=== PATIENT | female | born 1990 | race African-American/Black ===

== ENCOUNTER 2019-09-08 23:29 | Emergency (ER) | payer OTHER ==
[2019-09-08 23:33] VITALS: BMI 29.7
--- NOTE | 2019-09-08 23:47 | PDOC ---
History of Present Illness - General Chief Complaint: Vomiting/Diarrhea Stated Complaint: ABDOMINAL PAIN/VOMITING Time Seen by Provider: 09/08/19 23:46 - History of Present Illness Initial Comments: 28 YOF pmh colitis presents with nausea and vomiting of 1 day duration. Patient reports that this AM she woke up, after a night of drinking, and began vomiting. She had multiple bouts of vomiting throughout the day and was unable to keep down any fluids or solid food. She denies taking anything to alleviate her symptoms. She mentions one bout of diarrhea which occurred in the morning. She denies recent sick contacts or travel. She denies h/o abdominal surgery. She denies abdominal pain, blood in her stool or vomitus. She denies CP, SOB, fever or chills. 09/09/19 04:58 Past History - Travel History Traveled outside of the country in the last 30 days: No Close contact w/someone who was outside of country & ill: No - Medical History Allergies/Adverse Reactions: Allergies Allergy/AdvReac Type Severity Reaction Status Date / Time No Known Allergies Allergy Verified 09/08/19 23:33 Home Medications: Ambulatory Orders Famotidine [Pepcid -] 20 mg PO DAILY #7 tablet 09/09/19 Ondansetron [Zofran *Odt*] 4 mg SL TID #9 od.tablet 09/09/19 COPD: No - Psycho-Social/Smoking History Smoking History: Never smoked Have you smoked in the past 12 months: No - Substance Abuse Hx (Audit-C & DAST Scrn) How often the patient has a drink containing alcohol: 2-4 times / month Number of drinks the patient has on a typical day: 1 or 2 How often the patient has six or more drinks on one occasion: Never Score: In Men: 4 or > Positive; In Women: 3 or > Positive: 2 Screen Result (Pos requires Nsg. Audit-10AR): Negative In the last yr the pt used illegal drug/Rx for NonMed reason: No Score: Yes response is considered Positive: 0 Screen Result (Positive result requires Nsg. DAST-10): Negative Review of Systems - Review of Systems Constitutional: Yes: See HPI HEENTM: Yes: See HPI Respiratory: Yes: See HPI Cardiac (ROS): Yes: See HPI ABD/GI: Yes: See HPI : Yes: See HPI Musculoskeletal: Yes: See HPI Integumentary: Yes: See HPI Neurological: Yes: See HPI Endocrine: Yes: See HPI Hematologic/Lymphatic: Yes: See HPI *Physical Exam - Vital Signs Last Vital Signs Temp Pulse Resp BP Pulse Ox 98.3 F 60 18 139/76 98 09/08/19 23:30 09/08/19 23:30 09/08/19 23:30 09/08/19 23:30 09/08/19 23:30 ED Treatment Course - LABORATORY CBC & Chemistry Diagram: 09/09/19 00:10 09/09/19 00:10 Medical Decision Making - Medical Decision Making This is a 28 YOF h/o colitis w/ one day of nausea and vomiting as well as one bout of diarrhea this AM in the context of a previous night of heavy drinking. The patient denies CP, SOB, fever, chills, abdominal pain, h/o abdominal surgery, h/o heavy drinking, blood in vomitus, or blood in stool. Her vitals were stable on arrival. Her physical exam was benign, her belly was soft, non distended, non tender to palpation, she had no epigastsric tenderness, rebound, or guarding, murphys sign was negative. Differential includes but is not limited to: Gastroenteritis, gastritis, excessive alcohol consumption, cyclical vomiting syndrome. Plan: CXR, EKG, CBC, BMP, Lipase. Will give pepcid, ondansetron and fluids. Reassess: CXR, EKG and Labs were within normal limits, patient began to feel be tter after admin of meds and fluids. Dispo: Will discharge patient to home with prescription for anti nausea medications and instructions to return if condition worsens. Discharge - Discharge Information Problems reviewed: Yes Clinical Impression/Diagnosis: Vomiting Qualifiers: Vomiting type: unspecified Vomiting Intractability: non-intractable Nausea presence: with nausea Qualified Code(s): R11.2 - Nausea with vomiting, unspecified Condition: Good Disposition: HOME - Admission No - Additional Discharge Information Prescriptions: Famotidine [Pepcid -] 20 mg PO DAILY #7 tablet Ondansetron [Zofran *Odt*] 4 mg SL TID #9 od.tablet - Follow up/Referral - Patient Discharge Instructions Patient Printed Discharge Instructions: DI for Vomiting -- Adult Additional Instructions: You were seen in the emergency department for vomiting. You received fluids, anti nausea medication, and antacids. Shortly thereafter your symptoms improved and you were able to drink fluids and eat solid food. You were considered to be medically stable and the decision was made that you could return home. Take the prescribed medications if your symptoms of nausea and vomiting persist. Please return to the emergency department if your condition worsens or you experience any of the following: blood in your vomit, blood in your stool, chest pain, shortness of breath, or fever. - Post Discharge Activity Work/Back to School Note: Back to Work
[2019-09-09] MEDS ORDERED: SODIUM CHLORIDE 0.9% 500 ML INFUS.BAG IV ONE (00:01)
[2019-09-09] MEDS ORDERED: ONDANSETRON 4 MG/2 ML VIAL IVPUSH ONE (00:04)
[2019-09-09] MEDS ORDERED: FAMOTIDINE 20 MG/50 ML IVPB 20 MG/50 ML MG IVPB ONE ×2 (00:08→00:13)
[2019-09-09] MEDS ORDERED: LACTATED RINGERS SOLUTION 1000 ML INFUS.BAG IV ONE (00:27)
[2019-09-09 00:46] LABS: BASO % 0.6 % (0-2.0); EOS % 0.1 % (0-4.5); HEMATOCRIT 38.5 % (32.4-45.2); HEMOGLOBIN 12.4 GM/dL (10.7-15.3); LYMPH % 13.2 % (8-40); MCH 28.8 pg (25.7-33.7); MCHC 32.2 g/dl (32.0-36.0); MEAN CELL VOLUME 89.4 fl (80-96); MEAN PLT VOLUME 9.4 fl (7.5-11.1); MONO % 4.8 % (3.8-10.2); NEUT % 81.3 % (42.8-82.8); PLATELET COUNT 233 K/MM3 (134-434); RDW 13.6 % (11.6-15.6); WHITE BLOOD COUNT 12.1 K/mm3 (4.0-10.0)
[2019-09-09 01:08] LABS: BILIRUBIN,TOTAL 0.4 mg/dL (0.2-1); BLOOD UREA NITROGEN 15.2 mg/dL (7-18); POTASSIUM 3.6 mmol/L (3.5-5.1); TOT PROT 7.6 g/dl (6.4-8.2)
[2019-09-09] MEDS ORDERED: HALOPERIDOL LACTATE 5 MG/ML IV ONE ×2 (01:23→01:24)
--- NOTE | 2019-09-09 01:32 | PDOC ---
Documentation entered by Rosa Keith SCRIBE, acting as scribe for Agusto Casper MD. Agusto Casper MD: This documentation has been prepared by the Inna coreas Nirvannie, SCRIBE, under my direction and personally reviewed by me in its entirety. I confirm that the documentation accurately reflects all work, treatment, procedures, and medical decision making performed by me. Attending Attestation - Resident Resident Name: Shukri Andrea - ED Attending Attestation I have performed the following: I have examined & evaluated the patient, The case was reviewed & discussed with the resident, I agree w/resident's findings & plan, Exceptions are as noted - HPI HPI: 09/09/19 01:18 The 28 year old female with no significant past medical history who presents to the ED with nausea, vomiting, and diarrhea since this morning. Pt admits to drinking heavily last night. Also reports regular marijuana use. States she vomited 10 times today, nonbloody, nonbilious. No constipation. No prior surgeries. - Physicial Exam PE: 09/09/19 01:33 See resident exam - Medical Decision Making 09/09/19 02:01 28 F with N+V+D. Possible gastroenteritis vs CHS. - Labs - GI cocktail, fluids 09/09/19 03:16 Labs unremarkable Pt reassessed - pain and nausea improved. Now tolerating PO fluids Pt is well appearing, with normal vitals. Clinically stable for DC at this time. I discussed the physical exam findings, ancillary test results and final diagnoses with the patient. I answered all of the patient's questions. The patient was satisfied with the care received and felt comfortable with the discharge plan and treatment plan. The patient agrees to follow up with the primary care physician within 24-72 hours. Please note this patient was evaluated during the COVID-19 crisis with the presidential [place] Act Declaration and the [place] governor executive order number 202. He/she was evaluated and clinical decisions were made relative to healthcare system resources as well as clinical picture during a pandemic crisis situation. Discharge - Discharge Information Problems reviewed: Yes Clinical Impression/Diagnosis: Nausea, Gastritis Vomiting Qualifiers: Vomiting type: unspecified Vomiting Intractability: non-intractable Nausea presence: with nausea Qualified Code(s): R11.2 - Nausea with vomiting, unspecified Condition: Good Disposition: HOME - Additional Discharge Information Prescriptions: Famotidine [Pepcid -] 20 mg PO DAILY #7 tablet Ondansetron [Zofran *Odt*] 4 mg SL TID #9 od.tablet - Follow up/Referral - Patient Discharge Instructions Patient Printed Discharge Instructions: DI for Vomiting -- Adult Additional Instructions: You were seen in the emergency department for vomiting. You received fluids, anti nausea medication, and antacids. Shortly thereafter your symptoms improved and you were able to drink fluids and eat solid food. You were considered to be medically stable and the decision was made that you could return home. Take the prescribed medications if your symptoms of nausea and vomiting persist. Please return to the emergency department if your condition worsens or you experience any of the following: blood in your vomit, blood in your stool, chest pain, shortness of breath, or fever. - Post Discharge Activity Work/Back to School Note: Back to Work
[2019-09-09 04:29] VITALS: BP 111/65; PULSE 64; TEMP 99
--- NOTE | 2019-09-09 10:20 | EKG ---
Test Reason : Blood Pressure : / mmHG Vent. Rate : 057 BPM Atrial Rate : 057 BPM P-R Int : 156 ms QRS Dur : 086 ms QT Int : 438 ms P-R-T Axes : 041 068 025 degrees QTc Int : 426 ms SINUS BRADYCARDIA WITH MARKED SINUS ARRHYTHMIA OTHERWISE NORMAL ECG NO PREVIOUS ECGS AVAILABLE Confirmed by Yarely Reza ([id number]) on 09/09/2019 10:20:12 AM Referred By: Confirmed By:Yarely Reza
== END 2019-09-09 04:43 | disposition home or self-care (01) ==
LOC: JER 23:29
PROC: 3E033NZ Introduction of Analgesics, Hypnotics, Sedatives into Peripheral Vein, Percutaneous Approach (ICD-10-PCS; principal; 2019-09-09)
PROC: 3E033GC Introduction of Other Therapeutic Substance into Peripheral Vein, Percutaneous Approach (ICD-10-PCS; 2019-09-09)
DX: R11.2 Nausea with vomiting, unspecified (principal)
CPT/HCPCS: 36415; 71045-TC-FY; 80053; 83690; 84703; 85025; 93005; 93010; 99285-25